=== PATIENT | male | born 2000 | race Caucasian/White ===

== ENCOUNTER 2022-07-09 22:46 | Emergency (ER) | payer MEDICAID ==
[~2022-07-09] VITALS: Ht 167.6 cm; Wt 70.0 kg
[2022-07-10 00:54] LABS: BASOPHILS % 0.3 % (0.0-2.0); EOSINOPHILS % 0.2 % (0.0-5.0); HEMATOCRIT. 42.6 % (42.0-52.0); HEMOGLOBIN. 14.1 g/dL (14.0-18.0); LYMPHOCYTES % 12.1 % (20.0-50.0); MEAN CORPUSCULAR HEMOGLOBIN 29.3 pg (28.0-32.0); MEAN CORPUSCULAR VOLUME 88.6 fL (80.0-94.0); MONOCYTES % 7.1 % (2.0-8.0); NEUTROPHILS % 80.3 % (40.0-76.0); PLATELET 345 x1000/uL (130-400); RED BLOOD CELL COUNT 4.81 mill/uL (4.7-6.1); RED CELL DISTRIBUTION WIDTH 14.2 % (11.6-14.6)
[2022-07-10 00:58] LABS: CHLORIDE 110 mEq/L (98-107)
[2022-07-10 01:08] LABS: ETHANOL BLOOD 288 mg/dL
[2022-07-10 01:37] LABS: *AMPHETAMINES SCREEN URINE NEGATIVE (NEGATIVE); *BARBITURATES SCREEN URINE NEGATIVE (NEGATIVE); *BENZODIAZEPINES SCREEN URINE PRESUMTIVE POSITIVE (NEGATIVE); *COCAINE SCREEN URINE NEGATIVE (NEGATIVE); CANNABINOID URINE SCREEN PRESUMTIVE POSITIVE (NEGATIVE); METHADONE URINE SCREEN NEGATIVE (NEGATIVE); OPIATES URINE SCREEN NEGATIVE (NEGATIVE); PHENCYCLIDINE URINE SCREEN NEGATIVE (NEGATIVE)
[2022-07-10 04:30] VITALS: BP 115/66
== END 2022-07-10 05:00 | disposition home or self-care (01) ==
LOC: ER 22:46
DX: F19.10 Other psychoactive substance abuse, uncomplicated (principal); F10.129 Alcohol abuse with intoxication, unspecified; Y90.8 Blood alcohol level of 240 mg/100 ml or more
CPT/HCPCS: 36415; 80053; 80305; 80320; 85025; 99285; G0480

== ENCOUNTER 2024-04-18 18:10 | Emergency (ER) | payer BC, MEDICAID ==
[~2024-04-18] VITALS: Ht 167.6 cm; Wt 52.0 kg
[2024-04-18 18:20] VITALS: BP 126/69; TEMP 98.4; O2SAT 99
[2024-04-18 18:27] VITALS: PULSE 87; RESP 18; O2SAT 99
[2024-04-18] MEDS ORDERED: KETOROLAC 30MG/ML VIAL IM STA (23:08)
== END 2024-04-19 02:03 | disposition left against medical advice (07) ==
LOC: ER 18:10
DX: M79.605 Pain in left leg (principal); M79.604 Pain in right leg; V49.49XA Driver injured in collision with other motor vehicles in traffic accident, initial encounter; Y93.89 Activity, other specified; Y92.89 Other specified places as the place of occurrence of the external cause; Y99.8 Other external cause status
CPT/HCPCS: 96372; 99283

== ENCOUNTER 2024-05-07 01:24 | Emergency (ER) | payer BC ==
[~2024-05-07] VITALS: Ht 170.2 cm; Wt 74.0 kg
[2024-05-07 01:28] VITALS: BP 142/80; PULSE 88; RESP 14; TEMP 98.6; O2SAT 98
== END 2024-05-07 03:19 | disposition left against medical advice (07) ==
LOC: ER 01:24
DX: K13.79 Other lesions of oral mucosa (principal); Z53.21 Procedure and treatment not carried out due to patient leaving prior to being seen by health care provider